=== PATIENT | male | born 1985 | race Caucasian/White ===

== ENCOUNTER 2022-02-02 09:47 | Observation (INO) ==
[2022-02-02] MEDS ORDERED: Ondansetron 4 mg VIAL 2 MG/ML 2 ml VIAL IV ONE ×2 (10:27→10:44)
[2022-02-02] MEDS ORDERED: Pantoprazole 80 mg in NS BAG 80 MG/250 ML BAG IV ONE (10:28)
[2022-02-02] MEDS ORDERED: Pantoprazole VIAL 40 MG VIAL IV ONE (10:29)
[2022-02-02 10:55] LABS: ABS Eosinophils 0.1 10^3/ul (0-0.6); ABS Lymphocytes 0.9 10^3/ul (1.0-4.8); ABS Monocytes 0.7 10^3/ul (0-0.8); Eosinophil % 0.9 %; Hematocrit 37 % (42-52); Hemoglobin 12.7 g/dL (14.0-18.0); Lymphocyte % 9.3 %; Mean Corpuscular HGB Conc 34 g/dL (31-36); Mean Corpuscular Hemoglobin 30 pg (27-31); Mean Corpuscular Volume 89 fL (80-94); Mean Platelet Volume 8.3 fL (7.4-10.4); Platelet Count 246 10^3/uL (150-450); Red Cell Distribution Width 12 % (10-15); White Blood Count 9.7 10^3/uL (3.5-10.8)
[2022-02-02] MEDS ORDERED: Lactated Ringers 1000 ml BAG 1,000 ML IV ONE ×2 (10:56)
[2022-02-02 11:05] LABS: Urine Appearance Clear; Urine Bilirubin Negative (Negative); Urine Color Yellow; Urine Glucose Negative (Negative); Urine Ketones 2+ (40mg/dL) (Negative)
[2022-02-02 11:06] LABS: Urine Blood Negative (Negative); Urine Nitrite Negative (Negative); Urine Protein Negative (Negative); Urine Specific Gravity 1.015 (1.005-1.030); Urine Urobilinogen 0.2 (Negative) (Negative)
[2022-02-02 11:20] LABS: Activated Partial Thrombo Time 23.2 seconds (26.0-38.0); INR 1.07 (0.89-1.11)
[2022-02-02 11:29] LABS: ALT 17 U/L (7-52); Albumin 4.5 g/dL (3.2-5.2); Albumin/Globulin Ratio 2.3 (1-3); Alcohol, S < 13 mg/dL (<13); Alkaline Phosphatase 35 U/L (35-149); Blood Urea Nitrogen 39 mg/dL (6-24); CO2 Carbon Dioxide 27 mmol/L (22-32); Calcium 8.9 mg/dL (8.6-10.3); Chloride 103 mmol/L (101-111); Creatine Kinase 59 U/L (10-223); Glucose 142 mg/dL (70-100); Lipase 18 U/L (11.0-82.0); Sodium 138 mmol/L (135-145); Total Protein 6.5 g/dL (6.4-8.9); eGFR CKD-EPI 114.2 (>60)
[2022-02-02 11:40] LABS: Anion Gap 8 mmol/L (2-11)
[2022-02-02] MEDS ORDERED: Ondansetron 4 mg VIAL 2 MG/ML 2 ml VIAL IV PRN (12:54)
[2022-02-02] MEDS ORDERED: fentaNYL 100 mcg/2 ml 50 MCG/ML VIAL ONE ×2 (13:27→14:09)
[2022-02-02] MEDS ORDERED: Midazolam 5 mg/5 ml VIAL 1 mg/ml 5 ml VIAL (5 mg) ONE (13:27)
[2022-02-02] MEDS ORDERED: Propofol 10 MG/ML 20 ML BTL ONE (13:29)
[2022-02-02] MEDS ORDERED: Lidocaine 2% PF 5 ML VIAL ONE (13:29)
[2022-02-02] MEDS ORDERED: Succinylcholine 200 mg VIAL 20 mg/ml 10 ml VIAL (200 mg) ONE (13:29)
[2022-02-02] MEDS ORDERED: Ondansetron 4 mg VIAL 2 MG/ML 2 ml VIAL ONE (13:29)
[2022-02-02 13:44] LABS: Potassium Redraw 4.3 mmol/L (3.5-5.0)
[2022-02-02] MEDS: Pantoprazole 80 mg in NS BAG 80 MG/250 ML BAG IV SCH (18:31)
[2022-02-02 18:39] LABS: Hematocrit 32 % (42-52); Hemoglobin 10.8 g/dL (14.0-18.0); Mean Platelet Volume 8.1 fL (7.4-10.4); Platelet Count 195 10^3/uL (150-450)
[2022-02-03] MEDS: Pantoprazole 80 mg in NS BAG 80 MG/250 ML BAG IV SCH (04:31)
[2022-02-03 05:43] LABS: ABS Eosinophils 0.1 10^3/ul (0-0.6); ABS Lymphocytes 1.2 10^3/ul (1.0-4.8); ABS Monocytes 0.4 10^3/ul (0-0.8); ABS Neutrophils 2.9 10^3/ul (1.5-7.7); Hematocrit 29 % (42-52); Hemoglobin 10.1 g/dL (14.0-18.0); Lymphocyte % 26.6 %; Mean Corpuscular HGB Conc 35 g/dL (31-36); Mean Corpuscular Hemoglobin 31 pg (27-31); Mean Corpuscular Volume 89 fL (80-94); Nucleated Red Blood Cells % 0.1; Platelet Count 166 10^3/uL (150-450); Red Blood Count 3.27 10^6 /uL (4.18-5.48); Red Cell Distribution Width 12 % (10-15); White Blood Count 4.7 10^3/uL (3.5-10.8)
[2022-02-03 06:14] LABS: Calcium 8.2 mg/dL (8.6-10.3); Magnesium 1.8 mg/dL (1.9-2.7); Potassium 4.2 mmol/L (3.5-5.0); eGFR CKD-EPI 111.3 (>60)
[2022-02-03] MEDS ORDERED: Magnesium Sulfate 2 gm BAG 2 GM/50 ML BAG IVPB ONE (08:30)
[2022-02-03 12:14] LABS: Hematocrit 28 % (42-52); Hemoglobin 10.4 g/dL (14.0-18.0); Platelet Count 166 10^3/uL (150-450)
[2022-02-03 15:16] VITALS: BP 121/72
== END 2022-02-03 16:30 | disposition home or self-care (01) ==
LOC: ED 09:47 → EDHOLD 09:47 → OBSVTOIN 12:54 → INTOOBSV 12:54 → SSU 13:35 → SDS 13:35 → EDHOLD 13:47
PROVIDERS: ADMIT Internal Medicine; ATTEND Internal Medicine
PROC: O.GIEGD (2022-02-02 14:00)